=== PATIENT | female | born 1970 | race Caucasian/White ===

== ENCOUNTER 2018-07-06 21:47 | Emergency (ER) | payer OTHER ==
[~2018-07-06] VITALS: Ht 165.1 cm; Wt 54.4 kg
[2018-07-06] MEDS ORDERED: ALEVE220 MG PO (21:52)
[2018-07-06 22:30] LABS: ABSOLUTE NEUTROPHILS 8.1 thou/uL (1.4-8.2); BASOPHILS 1.2 % (0.0-2.0); EOSINOPHILS 3.6 % (0.0-3.0); HEMATOCRIT 41.3 % (37.0-47.0); HEMOGLOBIN 13.6 gm/dL (12.0-15.0); LYMPHOCYTES 24.4 % (24.0-44.0); MCH 27.3 pg (26.0-34.0); MCV 82.7 fL (80.0-100.0); MONOCYTES 6.6 % (1.0-8.0); PLATELET COUNT 238 thou/uL (150-400); POLYS 64.2 % (36.0-66.0); RBC 4.99 mil/uL (4.20-5.00); RDW 13.6 % (10.5-14.5); WBC 12.6 thou/uL (4.0-11.0)
[2018-07-06 22:39] LABS: CALCIUM 8.8 mg/dL (8.5-10.1); CREATININE 0.8 mg/dL (0.6-1.0); POTASSIUM 3.9 mmol/L (3.5-5.1)
[2018-07-07] MEDS ORDERED: AUGMENTIN 875-1 EACH PO (00:12)
[2018-07-07] MEDS ORDERED: ULTRAM 50MG TAB50 MG PO (00:12)
[2018-07-07] MEDS ORDERED: NAPROSYN500 MG PO (00:12)
[2018-07-07 00:54] VITALS: BP 122/82
== END 2018-07-07 00:55 | disposition home or self-care (01) ==
LOC: ER 21:47
PROVIDERS: Emergency Medicine
DX: K11.5 Sialolithiasis (principal); K11.21 Acute sialoadenitis; F17.210 Nicotine dependence, cigarettes, uncomplicated; Z90.710 Acquired absence of both cervix and uterus

== ENCOUNTER 2019-01-06 16:45 | Emergency (ER) | payer OTHER ==
[~2019-01-06] VITALS: Ht 165.1 cm; Wt 61.2 kg
[~2019-01-06 16:45] MED LIST: ALEVE220 MG PO; AUGMENTIN 875-1 EACH PO; NAPROSYN500 MG PO; ULTRAM 50MG TAB50 MG PO
[2019-01-06] MEDS ORDERED: PROMETH-CODEIN 65 ML PO (19:26)
[2019-01-06] MEDS ORDERED: PROAIR HFA8.5 GM INH (19:26)
[2019-01-06] MEDS ORDERED: TESSALON PERLE100 MG PO (19:26)
[2019-01-06] MEDS ORDERED: PREDNISONE 20 M20 MG PO (19:26)
[2019-01-06 19:44] VITALS: BP 119/77
== END 2019-01-06 19:45 | disposition home or self-care (01) ==
LOC: ER 16:45
DX: J40 Bronchitis, not specified as acute or chronic (principal); F17.210 Nicotine dependence, cigarettes, uncomplicated; Z90.710 Acquired absence of both cervix and uterus